=== PATIENT | male | born 1975 | race Caucasian/White ===

== ENCOUNTER 2020-03-20 08:46 | Outpatient (REF) | payer SELFPAY | END 2020-03-20 08:47 | disposition home or self-care (01) | LOC: HO.LAB 08:46 | PROVIDERS: Visit Provider Internal Medicine | DX: Z20.828 Contact with and (suspected) exposure to other viral communicable diseases (principal) | CPT/HCPCS: C9803; U0003 ==

== ENCOUNTER 2020-11-17 14:46 | Emergency (ER) | payer OTHER, SELFPAY ==
[2020-11-17] VITALS (8 sets, daily range): BP systolic 153–183; BP diastolic 83–94; PULSE 54–66; RESP 14–18; TEMP 36.8–36.9; O2SAT 90–97; BMI 36.8
--- NOTE | ~2020-11-17 | CT_ITS ---
EXAMINATION: CT HEAD WITHOUT CONTRAST CLINICAL INFORMATION: Headache COMPARISON: None TECHNIQUE: Contiguous axial imaging was performed from the skull base to vertex without intravenous administration of contrast. This CT examination was performed using dose optimization techniques as appropriate, variously including the following: *Automated exposure control *Adjustment of mA and/or kV according to patient size (this includes techniques or standardized protocols for targeted exams where dose is matched to indication/reason for exam; i.e. extremities or head) *Use of iterative reconstruction technique DLP: 952 mGy-cm FINDINGS: There is no evidence of acute intracranial hemorrhage or territorial infarction. No abnormal mass effect or midline shift is seen. Scott to white matter differentiation is well preserved. No extra-axial fluid collections are identified. The ventricles are normal in size. There is no abnormal attenuation within the brain parenchyma. The osseous structures and soft tissues are normal. The mastoid air cells and visualized portions of the paranasal sinuses are well aerated. CT/CT head/brain wo con IMPRESSION: No acute intracranial pathology.
--- NOTE | ~2020-11-17 | CT_ITS ---
EXAMINATION CTA CHEST, ABDOMEN AND PELVIS CLINICAL INFORMATION: Pain. Evaluate for dissection. COMPARISON: None. TECHNIQUE: Multidetector volumetric CT imaging of the abdomen and pelvis was obtained after the administration of 85 mL Omnipaque 350 intravenous contrast without immediate adverse reactions. Maximal intensity projection images, coronal and sagittal reformats are reviewed. This CT examination was performed using dose optimization techniques as appropriate, variously including the following: *Automated exposure control *Adjustment of mA and/or kV according to patient size (this includes techniques or standardized protocols for targeted exams where dose is matched to indication/reason for exam; i.e. extremities or head) *Use of iterative reconstruction technique DLP: 1053 mGy-cm FINDINGS: VASCULAR: No aortic aneurysm, penetrating atherosclerotic ulceration or dissection. While examination is not tailored towards evaluation of the pulmonary vasculature, there are no filling defects within the central or segmental pulmonary arterial branches to suggest pulmonary embolism. Single bilateral renal arteries are both capacious. Widely patent celiac axis and superior mesenteric artery. There is mild focal stenosis at the origin of the inferior mesenteric artery. Normal caliber common iliac arteries and branches. NONVASCULAR: CHEST: LUNGS/PLEURA: Lungs bilaterally symmetrically expanded. No focal lung nodule or mass. No effusion or pneumothorax. Central airways patent. MEDIASTINUM/ROSA: No mediastinal, hilar or supraclavicular adenopathy. No mediastinal mass or fluid collection. Imaged lower neck unremarkable. CARDIOVASCULAR STRUCTURES: Normal heart size. No pericardial effusion. No significant coronary artery calcifications. ABDOMEN/PELVIS: HEPATOBILIARY: Liver normal in size, contour and morphology. No suspicious lesions. No intra or extrahepatic biliary dilation. Gallbladder unremarkable. PANCREAS: Unremarkable. SPLEEN: Unremarkable. ADRENAL GLANDS: Unremarkable. KIDNEYS: Kidneys normal in size, axis and morphology demonstrating symmetric enhancement. No suspicious renal cysts or masses. No hydronephrosis or perinephric abnormality. PELVIC VISCERA: Prostate and seminal vesicles unremarkable. Bladder unremarkable. GASTROINTESTINAL TRACT: No bowel related abnormalities. LYMPH NODES: No lymphadenopathy. PERITONEUM/BODY WALL: Unremarkable. VASCULAR STRUCTURES: Unremarkable for age. MUSCULOSKELETAL: No acute or suspicious osseous abnormalities. CT/CT angio abdomen pelvis IMPRESSION: No aortic dissection or aneurysm. Lungs are clear. No evidence of pneumonitis. No acute findings within the chest, abdomen or pelvis.
--- NOTE | 2020-11-17 15:06 | ECG_ITS ---
Test Reason : HTN Blood Pressure : / mmHG Vent. Rate : 052 BPM Atrial Rate : 052 BPM P-R Int : 158 ms QRS Dur : 130 ms QT Int : 430 ms P-R-T Axes : 017 017 008 degrees QTc Int : 399 ms Sinus bradycardia Non-specific intra-ventricular conduction block Abnormal ECG No previous ECGs available Referred By: Natalie Frausto Electronically Signed By:Corey Mills
--- NOTE | 2020-11-17 15:16 | ECG_ITS ---
Test Reason : DIAPHORETIC Blood Pressure : / mmHG Vent. Rate : 067 BPM Atrial Rate : 067 BPM P-R Int : 158 ms QRS Dur : 126 ms QT Int : 416 ms P-R-T Axes : 060 021 016 degrees QTc Int : 439 ms Normal sinus rhythm Non-specific intra-ventricular conduction block Abnormal ECG When compared with ECG of 17-NOV-2020 15:05, No significant change was found Referred By: Natalie Frausto Electronically Signed By:Corey Mills
--- NOTE | 2020-11-17 15:20 | ED.BACK ---
HPI - Back Pain/Injury General Chief Complaint: Headache Stated Complaint: HTN Time Seen by Provider: 11/17/20 14:55 Source: patient Mode of arrival: ambulatory Limitations: no limitations History of Present Illness HPI Narrative: 45 yo male no known medical problems comes in today with c/o low back pain crawling around on all fours at home, just occurred prior to arrival, no prior episodes no trauma, then developed a headache, he c/o weakness now since medications in ambulance, no acute events recently, found to be HTN in 200s with EMS given meds en route with some improvement, has not gone to the doctor in 20 years. En-route given 324mg ASA, 100mcg fentanyl, nitro prior to arrival MD elicited complaint: back pain Onset (ago): hour(s) (1) Timing: constant Severity: severe Similar Symptoms Previously: No Quality: other (pain) Location: lumbar spine Radiation: other (up to head across entire back) Exacerbating factors: movement Relieving factors: none Context: other (occurred while cooking) Associated symptoms: weakness and other (headache) Treatments prior to arrival: ASA, other medications and other (nitro) Work related injury: No Related Data Home Medications Medication Instructions Recorded Confirmed No Known Home Meds 11/17/20 11/17/20 Allergies Allergy/AdvReac Type Severity Reaction Status Date / Time No Known Allergies Allergy Verified 11/17/20 15:06 Review of Systems Review of Systems: Constitutional : No Weight loss, No Fever, No Chills, pos sweats ENT/Mouth : No Hearing loss, No Ear Pain, No Nasal Congestion, No Sinus Pain, No Hoarseness, No sore throat, No Rhinorrhea, No Swallowing Difficulty Cardiovascular : No Chest Pain, No SOB Respiratory : No Cough, No Dyspnea Gastrointestinal : pos Nausea, No Vomiting, No Diarrhea, No abdominal Pain, No Hematochezia, No Melena Genitourinary : No Dysuria, No Urinary Frequency, No Hematuria, No Urinary Incontinence, Musculoskeletal : positive back pain Skin : No Skin Lesions, No rash Neuro : pos diffuse Weakness, No Numbness, No Paresthesias, no loss of bowel or bladder incontinence, no saddle anesthesia, pos headache All other systems reviewed and are negative PMFSH Past Medical History Attestation statement: The following information was validated with the patient. Medical History (Updated 11/17/20 @ 16:50 by Natalie Frausto DO) No active medical problems Social History Social History Alcohol intake: current Alcohol intake frequency: holidays/special occasions only Patient Tobacco Use Status: Never used Tobacco Use of substances other than those prescribed or required for medical reasons: No Advance Directives: No Advance Directives Information Provided: No Physical Exam Vital Signs: Vital Signs: Last Vital Signs Temp 98.2 F 11/17/20 14:52 Pulse 66 11/17/20 15:59 Resp 16 11/17/20 15:59 BP 158/85 H 11/17/20 15:59 Pulse Ox 94 11/17/20 15:59 Body Mass Index 36.8 Appearance: Alert. Oriented X3. Anxious mild acute distress. Eyes: Pupils equal, round and reactive to light. ENT: Pharynx normal. Neck: Normal inspection. Neck supple. CVS: Normal heart rate and rhythm. Pulses normal. Respiratory: No respiratory distress. Breath sounds normal. Abdomen: Soft and non-tender. Back: ttp along bilateral paraspinal muscles in lumbar area Skin: Skin warm and diaphoretic. pale skin color. Normal skin turgor. Extremities: No lower extremity edema. No calf ttp Neuro: Oriented X 3. No motor deficit. No sensory deficit. Course Course Course Narrative: signed out to Rose Mary TELLO pending repeat troponin at this time - BP drastically improved at this time. MDM - Back Pain/Injury MDM Narrative Medical decision making narrative: 45 yo male no known medical problems comes in today with c/o low back pain crawling around on all fours at home, just occurred prior to arrival, no prior episodes no trauma, then developed a headache, he c/o weakness now since medications in ambulance, no acute events recently, found to be HTN in 200s with EMS given meds en route with some improvement, has not gone to the doctor in 20 years. En-route given 324mg ASA, 100mcg fentanyl, nitro prior to arrival at this time given degree of HTN, reports of tearing back pain lumbar and thoracic (no CE symptoms) will send him emergently for dissection protocol, states headache started after symptoms, BP seems to be improving, repeat EKG, IVF, dispo per results and findings. Lab Data Result diagrams: 11/17/20 15:23 11/17/20 15:24 Labs: Lab Results 07/18/21 07/18/21 07/18/21 Range/Units 15:23 15:23 15:23 WBC 16.6 H (4.8-10.8) X10*3/uL RBC 4.98 (4.60-5.80) X10*6/uL Hgb 15.8 (14.0-18.0) g/dl Hct 46.6 (42-52) % MCV 93.6 (80-98) fL MCH 31.7 (27.0-33.0) pg MCHC 33.9 (31.0-36.0) g/dl RDW 12.5 (11.0-16.0) % Plt Count 205 (160-400) X10*3/uL MPV 11.4 (9.4-12.4) fL Immature Gran % (Auto) 1.0 H (0.0-0.4) % Neut % (Auto) 83.9 H (45-73) % Lymph % (Auto) 8.6 L (20-40) % Parmer % (Auto) 6.4 (2-11) % Eos % (Auto) 0.0 (0-4) % Baso % (Auto) 0.1 (0-2) % Lymph # (Auto) 1.4 (1.2-4.9) X10*3/uL [place] # (Auto) 1.1 (0.1-1.2) X10*3/uL Eos # (Auto) 0.0 (0.0-0.4) X10*3/uL Baso # (Auto) 0.0 (0.0-0.2) X10*3/uL Abs Immat Gran (auto) 0.17 H (0.00-0.03) X10*3/uL Absolute Neuts (auto) 13.9 H (2.0-8.3) X10*3/uL Absolute Nucleated RBC 0.000 (0.0-0.012) X10*3/uL Nucleated RBC % (auto) 0.0 (0.0-0.2) /100WBC PT (9.9-13.0) SEC INR (0.9-1.1) APTT (24.1-38.0) SEC Sodium (135-145) mmol/L Potassium (3.3-5.1) mmol/L Chloride (96-108) mmol/L Carbon Dioxide (22-29) mmol/L Anion Gap (12-20) BUN (9-16) mg/dL Creatinine (0.5-1.4) mg/dL Estim Creat Clear Calc Estimated GFR Random Glucose (60-115) mg/dL Lactic Acid 1.9 (0.5-2.0) mmol/L Calcium (8.4-10.2) mg/dL Magnesium (1.6-2.6) mg/dL Total Bilirubin (0.0-1.0) mg/dL Direct Bilirubin (0.0-0.5) mg/dL AST (5-37) U/L ALT (0-40) U/L Alkaline Phosphatase (39-117) U/L Troponin I High Sens < 3.5 (<3.5-35.0) ng/L Total Protein (6.5-8.0) g/dL Albumin (3.5-5.0) g/dL Lipase (8-78) U/L COVID-19 ([facility]) (Negative) COVID-19 Clin Com 11/17/20 11/17/20 11/17/20 Range/Units 15:23 15:24 15:24 WBC (4.8-10.8) X10*3/uL RBC (4.60-5.80) X10*6/uL Hgb (14.0-18.0) g/dl Hct (42-52) % MCV (80-98) fL MCH (27.0-33.0) pg MCHC (31.0-36.0) g/dl RDW (11.0-16.0) % Plt Count (160-400) X10*3/uL MPV (9.4-12.4) fL Immature Gran % (Auto) (0.0-0.4) % Neut % (Auto) (45-73) % Lymph % (Auto) (20-40) % Parmer % (Auto) (2-11) % Eos % (Auto) (0-4) % Baso % (Auto) (0-2) % Lymph # (Auto) (1.2-4.9) X10*3/uL [place] # (Auto) (0.1-1.2) X10*3/uL Eos # (Auto) (0.0-0.4) X10*3/uL Baso # (Auto) (0.0-0.2) X10*3/uL Abs Immat Gran (auto) (0.00-0.03) X10*3/uL Absolute Neuts (auto) (2.0-8.3) X10*3/uL Absolute Nucleated RBC (0.0-0.012) X10*3/uL Nucleated RBC % (auto) (0.0-0.2) /100WBC PT 11.3 (9.9-13.0) SEC INR 1.0 (0.9-1.1) APTT 26.1 (24.1-38.0) SEC Sodium 138 (135-145) mmol/L Potassium 4.1 (3.3-5.1) mmol/L Chloride 102 (96-108) mmol/L Carbon Dioxide 25 (22-29) mmol/L Anion Gap 15 (12-20) BUN 26 H (9-16) mg/dL Creatinine 1.21 (0.5-1.4) mg/dL Estim Creat Clear Calc 94.6 Estimated GFR > 60 Random Glucose 166 H (60-115) mg/dL Lactic Acid (0.5-2.0) mmol/L Calcium 9.6 (8.4-10.2) mg/dL Magnesium 1.9 (1.6-2.6) mg/dL Total Bilirubin 0.5 (0.0-1.0) mg/dL Direct Bilirubin 0.3 (0.0-0.5) mg/dL AST 25 (5-37) U/L ALT 38 (0-40) U/L Alkaline Phosphatase 80 (39-117) U/L Troponin I High Sens (<3.5-35.0) ng/L Total Protein 7.1 (6.5-8.0) g/dL Albumin 4.2 (3.5-5.0) g/dL Lipase 20 (8-78) U/L COVID-19 ([facility]) Negative (Negative) COVID-19 Clin Com See Note ECG Data Attestation: I personally reviewed and interpreted this ECG as follows: ECG interpretation date: 11/17/20 ECG interpretation time: 15:25 Prior ECG tracings: available for review Interpretation: Rate: 52 Rhythm: sinus bradycardia [place]: normal Normal P waves. Normal LILIA. wide QRS complex. ST T wave : nonspecific V1-V2 no STELLA qTC: normal prior studies: no acute ischemia The study has been interpreted contemporaneously by me. EKG#2 Rate: 67 Rhythm: NSR [place]: normal Normal P waves. Normal LILIA. wide QRS complex. ST T wave : no STELLA, normal qTC: normal prior studies: no acute ischemia The study has been interpreted contemporaneously by me. . Discharge Plan Discharge Clinical Impression: Back pain, HTN (hypertension) Prescriptions: No Action No Known Home Meds RF: 0
[2020-11-17 15:33] LABS: MANUAL DIFF FLAG NO
[2020-11-17 15:34] LABS: Basophils Percent Auto 0.1 % (0-2); Hematocrit 46.6 % (42-52); Hemoglobin 15.8 g/dl (14.0-18.0); Imm Gran Abs Auto 0.17 X10*3/uL (0.00-0.03); Lymphocytes Absolute Auto 1.4 X10*3/uL (1.2-4.9); Lymphocytes Percent Auto 8.6 % (20-40); Mean Corpuscular HGB Conc 33.9 g/dl (31.0-36.0); Mean Corpuscular Hemoglobin 31.7 pg (27.0-33.0); Mean Corpuscular Volume 93.6 fL (80-98); Mean Platelet Volume 11.4 fL (9.4-12.4); Monocytes Absolute Auto 1.1 X10*3/uL (0.1-1.2); Monocytes Percent Auto 6.4 % (2-11); Neutrophils Absolute Auto 13.9 X10*3/uL (2.0-8.3); Neutrophils Percent Auto 83.9 % (45-73); Platelet Count 205 X10*3/uL (160-400); Red Blood Count 4.98 X10*6/uL (4.60-5.80); Red Cell Distribution Width 12.5 % (11.0-16.0); White Blood Count 16.6 X10*3/uL (4.8-10.8)
--- NOTE | 2020-11-17 15:35 | PC.NURSE ---
Patient to ct via stretcher.
--- NOTE | 2020-11-17 15:36 | PC.NURSE ---
Patient arrived via ems from home for sudden onset of severe mid back pain and headache. Pt was vey diaphoretic when ems arrived. Pt was given 1 nitroglycerin tablet, aspirin 324mg and fentanyl 100mcg by ems [employer]. EMS also states patient BP was very high. Pt tshirt is soaking wet on arrival and has sweat all over face and head. Pt arrived with an peripheral iv established in left ac on arrival.
[2020-11-17 15:40] LABS: Prothrombin Time 11.3 SEC (9.9-13.0)
[2020-11-17 15:42] LABS: Partial Thromboplastin Time 26.1 SEC (24.1-38.0)
[2020-11-17] MEDS: 0.9 % Sodium Chloride 1,000 ML 999 ML IVCONT (15:50)
[2020-11-17 15:58] LABS: COVID-19 Test Negative (Negative)
[2020-11-17 16:03] LABS: Lactic Acid 1.9 mmol/L (0.5-2.0)
[2020-11-17 16:07] LABS: Alanine Aminotransferase 38 U/L (0-40); Albumin Level 4.2 g/dL (3.5-5.0); Alkaline Phosphatase 80 U/L (39-117); Anion Gap 15 (12-20); Aspartate Amino Transferase 25 U/L (5-37); Bilirubin Direct 0.3 mg/dL (0.0-0.5); Bilirubin Total 0.5 mg/dL (0.0-1.0); Blood Urea Nitrogen 26 mg/dL (9-16); Calcium 9.6 mg/dL (8.4-10.2); Carbon Dioxide 25 mmol/L (22-29); Chloride 102 mmol/L (96-108); Creatinine Clr Calc Pharmacy 94.6; Estimated Glomerular Filt Rate > 60; Glucose Random 166 mg/dL (60-115); Lipase 20 U/L (8-78); Magnesium 1.9 mg/dL (1.6-2.6); Potassium 4.1 mmol/L (3.3-5.1); Sodium 138 mmol/L (135-145); Total Protein 7.1 g/dL (6.5-8.0)
[2020-11-17 16:13] LABS: Troponin-I High Sensitivity < 3.5 ng/L (<3.5-35.0)
[2020-11-17] MEDS: iohexoL 350 MG/ML 100 ML INFUS..BTL IV (16:18)
[2020-11-17 16:56] LABS: Glucose Urine UA NEG (NEG); Leukocyte Esterase Urine NEG (NEG); Nitrite Urine NEG (NEG); Urine Blood TRACE (NEG); Urine Ketones NEG (NEG); Urine Protein TRACE MG/DL (NEG-TRACE)
[2020-11-17 17:00] LABS: Appearance Urine CLEAR; Color Urine YELLOW
[2020-11-17 17:10] LABS: RBC Urine 0-2 /HPF (0); Squamous Epithelial Cell Urine 1+ /LPF; WBC Urine 0-2 /HPF (0-4)
[2020-11-17 17:37] LABS: Amphetamine Screen Urine Not Detected (Not Detect); Barbiturates, Urine Not Detected (Not Detect); Benzodiazepines Screen Urine Not Detected (Not Detect); Cannabinoid Screen Urine Not Detected (Not Detect); Cocaine Screen Urine Not Detected (Not Detect); Opiate Screen Urine Not Detected (Not Detect); Phencyclidine Screen Urine Not Detected (Not Detect)
[2020-11-17 19:18] LABS: Troponin-I High Sensitivity 10.2 ng/L (<3.5-35.0)
[2020-11-17] MEDS: Butalb/Acetamin/Caff 50/325/40 TABLET 1 TAB PO (20:13)
--- NOTE | 2020-11-17 22:14 | PC.NURSE ---
FIORICET HAS PROVIDED SOME RELIEF, PT ABLE TO GET SOME REST. PT WAKES EASILY, ANSWERING QUESTIONS APPROPRIATELY. FAMILY AT BEDSIDE.
== END 2020-11-17 23:21 | disposition home or self-care (01) ==
PROVIDERS: Emergency Provider Emergency Medicine
DX: M54.5 Low back pain (principal); I10 Essential (primary) hypertension; R51.9 Headache, unspecified; Z79.899 Other long term (current) drug therapy; Z20.822 Contact with and (suspected) exposure to COVID-19
CPT/HCPCS: 36415; 70450; 71275; 74174; 80048; 80076; 80307; 81001; 81003; 83605; 83690; 83735; 84484; 85025; 85610; 85730; 87635; 93005; 96365; 96375; 99285; Q9967